=== PATIENT | female | born 1990 | race American Indian/Alaskan Native ===

== ENCOUNTER 2018-03-31 05:00 | Emergency (ER) | payer MEDICAID, OTHER ==
[2018-03-31] MEDS ORDERED: ZOFRAN ODT PO ONE (06:05)
[2018-03-31] MEDS ORDERED: ZOFRAN ODT ONE (06:08)
[2018-03-31] MEDS ORDERED: SUBLIMAZE IV ONE (08:34)
[2018-03-31] MEDS ORDERED: TYLENOL PO ONE (08:35)
[2018-03-31] MEDS ORDERED: ZOFRAN IV ONE (08:35)
[2018-03-31 09:13] LABS: Basophils % (Auto) 0.4 % (0.0-1.8); Eosinophils # (Auto) 0.1 K/mm3 (0.0-0.4); Hematocrit 34.8 % (30.3-42.9); Lymphocytes # (Auto) 1.5 K/mm3 (1.2-5.4); Lymphocytes % (Auto) 18.4 % (13.4-35.0); Mean Corpuscular HGB Conc 35 % (30-34); Mean Corpuscular Hemoglobin 32 pg (28-32); Mean Corpuscular Volume 93 fl (79-97); Monocytes # (Auto) 0.8 K/mm3 (0.0-0.8); Monocytes % (Auto) 9.3 % (0.0-7.3); Platelet Count 180 K/mm3 (140-440); Red Blood Count 3.75 M/mm3 (3.65-5.03); Red Cell Distribution Width 13.1 % (13.2-15.2)
[2018-03-31 09:48] LABS: Alanine Aminotransferase 28 units/L (7-56); Albumin 4.1 g/dL (3.9-5); BUN/Creatinine Ratio 16; Blood Urea Nitrogen 8 mg/dL (7-17); Calcium 8.9 mg/dL (8.4-10.2); Hemolysis Index 14; Lipase 29 units/L (13-60)
[2018-03-31] MEDS ORDERED: LIDOCAINE VISCOUS 2% PO ONE (10:20)
--- NOTE | 2018-03-31 10:21 | Emergency Department Report ---
ED General Adult HPI - General Chief complaint: Abdominal Pain Stated complaint: RT EAR FACIAL PAIN/ABD PAIN Time Seen by Provider: 03/31/18 07:29 Source: patient, RN notes reviewed Mode of arrival: Ambulatory Limitations: No Limitations - History of Present Illness Initial comments: This is a 28-year-old female. The patient is not known to this provider previously. She reports no chronic medical conditions, and denies history of abdominal surgeries. The patient presents to the emergency room with a primary complaint of right-sided ear fullness, decreased hearing, but no tinnitus, no vertigo, and right anterior cervical neck discomfort. The symptoms have been going on for 2 weeks. Patient describes a sensation of ear fullness and decreased auditory acuity. She has no stridor or trismus and no sensitivity to hot and cold. She also describes mild difficulty opening up her jaw. Patient denies trauma, and also denies severe headache. Patient also thinks that she is . Patient reports a positive home test, and reports her last menstrual period is February 13. Assuming that she is today, she reports that she is 4, para 3. She denies lower abdominal pain, and denies irritative, obstructive urinary symptoms. -: Gradual, week(s) Location: neck (and rigth ear) Radiation: neck Severity scale (0 -10): 10 Quality: aching Consistency: constant Improves with: medication (patient given acetaminophen in the emergency department, and this improved her symptoms), rest Worsens with: movement (pain increases with palpation) Associated Symptoms: denies: confusion, chest pain, cough, diaphoresis, fever/ chills, headaches, loss of appetite, malaise, nausea/vomiting, rash, seizure, shortness of breath, syncope, weakness - Related Data Previous Rx's Medication Instructions Recorded Last Taken Type Acetaminophen [Tylenol Arthritis] 650 mg PO Q6HR PRN #30 tablet.er 03/31/18 Unknown Rx Cephalexin [Keflex] 500 mg PO QID #20 capsule 03/31/18 Unknown Rx Doxylamine Succinate/Vit B6 1 each PO QHS PRN #30 tablet. 03/31/18 Unknown Rx [Lisa Abdalla 10-10 mg Tablet] Magi Root [Magi] 250 mg PO QID PRN #30 capsule 03/31/18 Unknown Rx Vit Calc,Iron,Folic 1 each PO QDAY #30 tablet 03/31/18 Unknown Rx [ Vitamins] Allergies Allergy/AdvReac Type Severity Reaction Status Date / Time latex AdvReac Itching Verified 04/25/15 13:24 Latex, Natural Rubber AdvReac Swelling Verified 04/25/15 13:24 ED Review of Systems ROS: Stated complaint: RT EAR FACIAL PAIN/ABD PAIN Other details as noted in HPI Constitutional: denies: fever Eyes: denies: eye discharge, vision change ENT: ear pain. denies: congestion Respiratory: denies: cough Cardiovascular: denies: chest pain Gastrointestinal: denies: abdominal pain, nausea, vomiting Genitourinary: denies: dysuria Musculoskeletal: denies: back pain Skin: denies: lesions Neurological: denies: weakness Psychiatric: anxiety ED Past Medical Hx - Past Medical History Previous Medical History?: Yes Hx Hypertension: No Hx Congestive Heart Failure: No Hx Diabetes: No Hx Deep Vein Thrombosis: No Hx Renal Disease: No Hx Sickle Cell Disease: Yes (trait) Hx Seizures: No Hx Asthma: No Hx COPD: No Hx HIV: No Additional medical history: stomach ulcers - Surgical History Past Surgical History?: No - Social History Smoking Status: Never Smoker Substance Use Type: None - Medications Home Medications: Home Medications Medication Instructions Recorded Confirmed Last Taken Type Acetaminophen [Tylenol Arthritis] 650 mg PO Q6HR PRN #30 tablet.er 03/31/18 Unknown Rx Cephalexin [Keflex] 500 mg PO QID #20 capsule 03/31/18 Unknown Rx Doxylamine Succinate/Vit B6 1 each PO QHS PRN #30 tablet. 03/31/18 Unknown Rx [Lisa Abdalla 10-10 mg Tablet] Magi Root [Magi] 250 mg PO QID PRN #30 capsule 03/31/18 Unknown Rx Vit Calc,Iron,Folic 1 each PO QDAY #30 tablet 03/31/18 Unknown Rx [ Vitamins] ED Physical Exam - General Limitations: No Limitations General appearance: alert, in no apparent distress - Head Head exam: Present: atraumatic, normocephalic, other (the patient is speaking in full sentences. There is no elevation of the base of the tongue. There is no stridor.) - Eye Eye exam: Present: normal appearance, PERRL, EOMI, other (visual acuity intact to finger counting, color perception, reading at a close distance). Absent: nystagmus - ENT ENT exam: Present: normal exam (right-sided TMJ tenderness.), normal orophraynx , mucous membranes moist, TM's normal bilaterally, normal external ear exam, other (there is no mastoid tenderness. The helix is nontender. The tragus is nontender. There is no redness, pus or streaking. No vesicles noted. Tympanic membrane appears to be clear. No foreign bodies noted.) - Neck Neck exam: Present: normal inspection, full ROM. Absent: tenderness, meningismus, lymphadenopathy, thyromegaly - Respiratory Respiratory exam: Present: normal lung sounds bilaterally. Absent: respiratory distress - Cardiovascular Cardiovascular Exam: Present: regular rate, normal rhythm, normal heart sounds. Absent: bradycardia, tachycardia, irregular rhythm, systolic murmur, diastolic murmur, rubs, gallop - GI/Abdominal GI/Abdominal exam: Present: soft, normal bowel sounds. Absent: distended, tenderness, guarding, rebound, rigid, pulsatile mass - Extremities Exam Extremities exam: Present: normal inspection, full ROM, normal capillary refill , other (2+ pulses noted in the bilateral upper, lower extremities. Compartments soft. No long bony tenderness. The pelvis is stable.). Absent: tenderness, pedal edema, joint swelling, calf tenderness - Back Exam Back exam: Present: normal inspection, full ROM. Absent: tenderness, CVA tenderness (R), paraspinal tenderness, vertebral tenderness - Neurological Exam Neurological exam: Present: alert, oriented X3, CN II-XII intact, normal gait, other (Extraocular movements intact. Tongue midline. No facial droop. Facial sensation intact to light touch in the V1, V2, V3 distribution bilaterally. 5 and 5 strength in 4 extremities.. Sensation is intact to light touch in 4 extremities.). Absent: motor sensory deficit - Psychiatric Psychiatric exam: Present: normal affect, normal mood, anxious - Skin Skin exam: Present: warm, dry, intact, normal color. Absent: rash ED Course Vital Signs 03/31/18 03/31/18 03/31/18 05:57 07:05 07:16 Temperature 99 F 98.2 F Pulse Rate 91 H 74 Respiratory 12 18 Rate Blood Pressure 106/47 102/51 Blood Pressure 102/51 [Left] O2 Sat by Pulse 99 96 99 Oximetry 03/31/18 03/31/1818 07:30 07:46 08:00 Temperature Pulse Rate Respiratory Rate Blood Pressure 102/51 102/51 101/50 Blood Pressure [Left] O2 Sat by Pulse 99 100 100 Oximetry 03/31/18 03/31/18 09:00 10:00 Temperature Pulse Rate Respiratory 18 18 Rate Blood Pressure Blood Pressure [Left] O2 Sat by Pulse Oximetry - Reevaluation(s) Reevaluation #1: 03/31/18 11:01 Differential diagnosis, including but not limited to: Otitis media, , TMJ Assessment and plan: 28-year-old female with a primary complaint of right-sided otalgia, hearing loss, secondary complaint of positive . On my examination, she has normal cranial nerves, is speaking in full sentences , has a supple neck, her ears externally appeared to be symmetric and within normal limits bilaterally, there is no mastoid tenderness, there is no redness, pus or streaking, no vesicular lesions noted, and no erythema to tympanic membrane is noted. There does not appear to be an emergent condition involving the head and neck at this time, and given normal vital signs and duration of symptoms for 2 weeks, it is my opinion that the patient is medically suitable to follow-up with outpatient ENT for further evaluation. Based on her history and physical, is my pain that she does not require an emergent CT scan of the face or neck at this time. In addition, her pain was markedly improved with acetaminophen. Patient has a secondary complaint of possibly being , but to me she denied abdominal pain, nausea, vomiting and urinary symptoms. Her quantitative hCG did come back elevated, and my bedside ultrasound demonstrated a questionable sac, and a large extrauterine cystlike structure. Formal radiology ultrasound is pending at this time. Reevaluation #2: 03/31/18 12:05 Ultrasound demonstrates intrauterine and large cyst. Urinalysis demonstrates 1+ bacteria. Patient will be started on Keflex, and she'll be instructed to follow up with outpatient [facility] and outpatient otolaryngology. ED Medical Decision Making - Lab Data Result diagrams: 03/31/18 08:42 03/31/18 08:42 Vital Signs 03/31/18 03/31/18 03/31/18 05:57 07:05 07:16 Temperature 99 F 98.2 F Pulse Rate 91 H 74 Respiratory 12 18 Rate Blood Pressure 106/47 102/51 Blood Pressure 102/51 [Left] O2 Sat by Pulse 99 96 99 Oximetry 03/31/18 03/31/18 03/31/18 07:30 07:46 08:00 Temperature Pulse Rate Respiratory Rate Blood Pressure 102/51 102/51 101/50 Blood Pressure [Left] O2 Sat by Pulse 99 100 100 Oximetry 03/31/18 09:00 Temperature Pulse Rate Respiratory 18 Rate Blood Pressure Blood Pressure [Left] O2 Sat by Pulse Oximetry Labs 03/31/18 03/31/18 03/31/18 08:42 08:42 08:42 WBC 8.2 RBC 3.75 Hgb 12.0 Hct 34.8 MCV 93 MCH 32 MCHC 35 H RDW 13.1 L Plt Count 180 Lymph % (Auto) 18.4 Real % (Auto) 9.3 H Eos % (Auto) 1.0 Baso % (Auto) 0.4 Lymph # 1.5 Real # 0.8 Eos # 0.1 Baso # 0.0 Seg Neutrophils % 70.9 H Seg Neutrophils # 5.8 Sodium 137 Potassium 4.5 Chloride 105.5 Carbon Dioxide 22 Anion Gap 14 BUN 8 Creatinine 0.5 L Estimated GFR > 60 BUN/Creatinine Ratio 16 Glucose 92 Calcium 8.9 Total Bilirubin 0.20 AST 20 ALT 28 Alkaline Phosphatase 45 Total Protein 6.9 Albumin 4.1 Albumin/Globulin Ratio 1.5 Lipase 29 HCG, Quant 10410 H Critical care attestation.: If time is entered above; I have spent that time in minutes in the direct care of this critically ill patient, excluding procedure time. ED Disposition Clinical Impression: , Otalgia of right ear Disposition: DC-01 TO HOME OR SELFCARE Is pt being admited?: No Does the pt Need Aspirin: No Condition: Good Additional Instructions: Follow up with an digital marketing lead/nose and throat specialist within the next 5- 7 days. Local ENT doctors include Dr. Reed and Jesus Manuel Escamilla Apply warm compresses to the ear, and take acetaminophen as directed. Take vitamins on a daily basis, and follow up with an [facility] doctor as soon as possible to initiate outpatient care. take the and nausea medications as needed/directed. Return to the ER right away with new pain, worsened pain, migration of pain, projectile vomiting, change in mental status, confusion, inability to tolerate liquid feeds. Referrals: LASHONDA BHAGAT MD [Staff Physician] - 3-5 Days HERMILO THOMPSON MD [Staff Physician] - 3-5 Days [facility] [Provider Group] - 3-5 Days [facility] [Provider Group] - 3-5 Days [facility] [Provider Group] - 3-5 Days
[2018-03-31 11:09] LABS: Bacteria,Urine 1+ /HPF (Negative); Bilirubin,Urine NEG (Negative); Blood,Urine NEG (Negative); Color,Urine Yellow (Yellow); Mucus,Urine FEW /HPF; Protein,Urine <15 mg/dL mg/dL (Negative); Urobilinogen,Urine < 2.0 mg/dL (<2.0)
--- NOTE | 2018-03-31 11:41 | Ultrasound Report ---
ULTRASOUND OB LESS THAN 14 WEEKS FETUS ULTRASOUND OB TRANSVAGINAL History: Abdominal pain during . Technique: Transabdominal and transvaginal ultrasound imaging. Findings: An intrauterine dated at 6 weeks, 0 days is identified. Heart rate measures 112 beats per minute. No evidence for subchorionic hemorrhage. The cervix is closed and unremarkable. The left ovary is normal. There is a large complex cyst measuring up to 7 cm in the right adnexa. This may represent a hemorrhagic ovarian cyst. Small free pelvic fluid is noted. Impression: Viable, single intrauterine as described. 7 cm complex right adnexal cyst.
[2018-03-31 12:38] VITALS: BP 98/52
== END 2018-03-31 12:52 | disposition home or self-care (01) ==
LOC: ED 05:00
DX: O26.891 Other specified pregnancy related conditions, first trimester (principal); H92.01 Otalgia, right ear; D57.3 Sickle-cell trait; Z91.040 Latex allergy status; Z3A.01 Less than 8 weeks gestation of pregnancy
CPT/HCPCS: 36415; 76801; 76817; 80053; 81001; 83690; 84702; 85025; 99284; J2405; Q0162